=== PATIENT | female | born 1995 | race Caucasian/White ===

== ENCOUNTER 2021-11-05 07:25 | Inpatient (IN) | payer SELFPAY, OTHER ==
[2021-11-05] VITALS (24 sets, daily range): BP systolic 106–136; BP diastolic 56–91; PULSE 65–96; TEMP 36.3–37.1; O2SAT 90–99; BMI 25.9
[2021-11-05 07:12] LABS: ROM Internal Control Test YES-OK TO RESULT pt. (Internal QC)
[2021-11-05 07:13] LABS: ROM Patient Test POSITIVE (Negative)
[2021-11-05 07:41] LABS: Bedside Glucose 79 mg/dL (74-106)
[2021-11-05] MEDS: Lactated Ringers 1,000 ML 50 ML IV (08:05)
[2021-11-05 08:29] LABS: Absolute Lymphocyte Count 1.39 X10^3/uL (0.83-4.51); Absolute Neutrophil Count 6.9 X10^3/uL (2.0-7.7); Basophil# 0.02 X10^3/uL; Basophil% 0.2 % (0-1); Eosinophil# 0.02 X10^3/uL; Eosinophils% 0.2 % (0-5); Hematocrit 42.2 % (37-47); Hemoglobin 14.3 g/dL (12.0-15.0); Lymphocyte # 1.39 X10^3/ul (0.83-4.51); Lymphocyte % 15.6 % (19-41); Mean Corp Hgb Conc 33.9 g/dL (32-36); Mean Corpuscular Hgb 30.4 pg (27.0-32.0); Mean Corpuscular Volume 89.8 fL (81-99); Mean Platelet Vol. 10.8 fl (6.2-12.0); Monocyte# 0.45 X10^3/uL; NRBC Flagged by Analyzer 0 % (0-5); Neutrophil # 6.94 X10^3/uL (2.7-7.7); Neutrophil % 77.9 % (47-70); Platelet Count 123 K/mm3 (150-450); RBC Distribution Width CV 13.1 % (11.6-14.6); RBC Distribution Width SD 43.1 fl (35.1-43.9); White Blood Count 8.9 K/mm3 (4.4-11.0)
[2021-11-05 09:39] LABS: HIV - WCH Non-Reactive (Nonreactive); Hepatitis C Antibody Non-Reactive (Nonreactive)
[2021-11-05 09:59] LABS: Group B Strep DNA By PCR Negative (Negative); Internal Control PASS; Probe Check PASS; Specimen Processing Control PASS
[2021-11-05] MEDS: Oxytocin 30 units/NS 500 ml 30 UNITS/500 ML IV.SOLN IV (10:13)
[2021-11-05] MEDS: Betamethasone/Betamethasone 30 MG/5 ML Vial 12 MG IM (12:02)
[2021-11-05] MEDS: Amnioinfusion- 0.9% NS 1,000 ML IV.SOLN. 1000 ML INTRA-UTER (16:13)
--- NOTE | 2021-11-05 16:35 | PCM.HP.OB ---
HPI - General General Date of Admission: 11/05/21 HPI Narrative ALEN PÉREZ, is a 26 F who presents with clear PPROM at 4 am this morning. she has been receiving care by the vice president of software development Jyoti at the [facility]. she denies any bleeding or regular ctx, admits good fm. she denies any recent infections. Maternal Data Information BRAYDON Calculator Estimated Delivery Date Method Current WG Current Estimate 12/05/21 LMP (Certain) 35w 5d PFSH PFSH Medical History (Updated 11/05/21 @ 16:[address] Cara Moreland MD) Burn Home Medications [id number] [] 1 tab PO DAILY 11/05/21 [History Last Taken 11/04/21 20:00] Allergy/AdvReac Type Severity Reaction Status Date / Time No Known Allergies Allergy Verified 11/05/21 07:29 Family History (Updated 11/05/21 @ 08:01 by Callie Temple) Sister Cerebral palsy Surgical History (Updated 11/05/21 @ 16:[address] Cara Moreland MD) H/O skin graft Social History Smoking Status: Never smoker History 1 Elective abortions Hx Para 0 Spontaneous abortions Hx # Term Pregnancies Ectopic pregnancies Hx # Pregnancies Multiple births # of living children NST FHR Rate Baby A Baseline: 140 Variability:: Moderate Accelerations:: 15 x 15 Decelerations:: None NST Reactive:: Yes FHR Category:: Category I Uterine Activity:: irregular ROS Constitutional Constitutional: Reports systems reviewed and no addt'l complaints, except as documented ENT HEENT: Reports systems reviewed and no addt'l complaints, except as documented Cardiovascular Cardiovascular: Reports systems reviewed and no addt'l complaints, except as documented Respiratory/Chest Respiratory/Chest: Reports systems reviewed and no addt'l complaints, except as documented Gastrointestinal Gastrointestinal: Reports systems reviewed and no addt'l complaints, except as documented and nausea; Denies abdominal pain Genitourinary Genitourinary: Reports systems reviewed and no addt'l complaints, except as documented, contractions Details: present and frequency (regular ) and movement Details: present Musculoskeletal Musculoskeletal: Reports systems reviewed and no addt'l complaints, except as documented Integumentary Integumentary: Reports as per HPI Neurologic Neurologic: Reports systems reviewed and no addt'l complaints, except as documented Endocrine Endocrinology: Reports systems reviewed and no addt'l complaints, except as documented Vital Signs Vital Signs Vital Signs: 11/05/21 06:51 11/05/21 07:13 11/05/21 09:05 Temperature 97.9 F 98.6 F Temperature Source Temporal Temporal Pulse Rate 85 88 95 Blood Pressure 128/76 H 124/73 H 116/70 BP Systolic 128 124 116 BP Diastolic 76 73 70 Pulse Ox 98 98 11/05/21 10:15 11/05/21 11:11 11/05/21 12:08 Temperature 98.7 F 98.3 F Temperature Source Temporal Temporal Pulse Rate 87 79 85 Blood Pressure 123/60 H 112/56 L 106/64 BP Systolic 123 112 106 BP Diastolic 60 56 64 Pulse Ox 96 96 97 11/05/21 12:32 11/05/21 13:35 11/05/21 14:31 Temperature 98.2 F 97.5 F L 98.4 F Temperature Source Temporal Temporal Temporal Pulse Rate 90 88 91 Blood Pressure 118/68 114/75 120/70 BP Systolic 118 114 120 BP Diastolic 68 75 70 Pulse Ox 96 97 99 11/05/21 15:21 11/05/21 15:22 Temperature 97.9 F Temperature Source Temporal Pulse Rate 78 Blood Pressure 115/74 BP Systolic 115 BP Diastolic 74 Pulse Ox 97 Weight Weight: 156 lb Body Mass Index (BMI) 25.9 Physical Exam Const alert, oriented x3 and healthy appearing Constitutional Narrative: uncomfortable with contractions HEENT normocephalic and moist oral mucous membranes Head and Scalp: atraumatic Neck full ROM, no lymphadenopathy, supple and thyroid normal General: trachea midline Thyroid: thyroid normal Lymph Lymphatic: no lymphadenopathy noted Chest inspection of chest normal Resp normal respiratory effort Cardio regular rate GI normal to inspection, nondistended, normoactive bowel sounds, soft to palpation and non-tender Inspection: gravid external exam normal Bimanual Exam - Vag & Uterus: uterus non-tender Manual OB Exam: estimated gestational size appropriate, presentation cephalic, dilated, effaced and station Extremity normal to inspection General Extremity: Negative for edema Skin no rashes or lesions noted Neuro deep tendon reflexes 2+ bilaterally Motor Exam: strength 5/5 throughout and clonus absent Psych mental status grossly normal Labs Labs Labs: Blood Type A POSITIVE Antibody Screen NEGATIVE Hct 42.2 % (37-47) Hgb 14.3 g/dL (12.0-15.0) HIV 1&2 Antibody Non-Reactive (Nonreactive) Group B Strep DNA Negative (Negative) Assessment & Plan (1) premature rupture of membranes (PPROM) with unknown onset of labor: COMMENT: start pitocin per protocol, ampicillin for GBS prophylaxis and rapid sent, celestone x 1 given. monitor for signs of chorioamnionitis. prepare for . discussed Epidural/Nitrous Oxide/IV pain meds PRN. (2) : PLAN: see problem list comments for plan management
--- NOTE | 2021-11-05 17:50 | PN.OBGYN_ITS ---
Subjective Subjective Reports contractions intensify. Objective Data Objective Data Vital Signs: Vital Signs Temp Pulse BP Pulse Ox 97.8 F 65 114/65 90 11/05/21 16:57 11/05/21 16:58 11/05/21 16:58 11/05/21 16:58 Weight: 70.76 kg Body Mass Index (BMI) 25.9 Intake & Output: Intake and Output for Last 24 Hours 11/03/21 11/04/21 11/05/21 23:59 23:59 23:59 Intake Total 1630.13 / 1630.13 Output Total 2250 / 2250 Balance -619.87 / -619.87 Lab / Micro Data Result Diagrams: 11/05/21 08:00 Labs: Laboratory Results - last 24 hr 11/05/21 06:58: Vag Amniotic Fld Detect POSITIVE H 11/05/21 07:29: POC Glucose 79 11/05/21 08:00: WBC 8.9, RBC 4.70, Hgb 14.3, Hct 42.2, MCV 89.8, MCH 30.4, MCHC 33.9, RDW Std Deviation 43.1, RDW Coeff of Anatoly 13.1, Plt Count 123 L, MPV 10.8, Immature Gran % (Auto) 1.100 H, Neut % (Auto) 77.9 H, Lymph % (Auto) 15.6 L, Bollinger % (Auto) 5.0, Eos % (Auto) 0.2, Baso % (Auto) 0.2, Absolute Neuts (auto) 6.9, Absolute Lymphs (auto) 1.39, Nucleated RBC % 0 11/05/21 08:00: Blood Type A POSITIVE, Antibody Screen NEGATIVE 11/05/21 08:00: Group B Strep DNA Negative, Specimen Comment Not Reportable 11/05/21 08:00: Hepatitis C Antibody Non-Reactive, HIV 1&2 Antibody Non-Reactive Micro: Microbiology 11/05/21 08:22 Nasal Secretion SARS-CoV-2 Antigen (Rapid) - Final Physical Exam Const alert and oriented x3 Constitutional Narrative: breathing through contractions. GI GI Narrative: gravid, nontender Narrative: 6.5/80/0, cephalic NST FHR Rate Baby A Baseline: 115 Variability:: Moderate Accelerations:: 15 x 15 Decelerations:: None NST Reactive:: Yes FHR Category:: Category I Uterine Activity:: 11/26 Assessment & Plan (1) premature rupture of membranes (PPROM) with unknown onset of labor: PLAN: Amnioinfusion completed and pitocin discontinued due to variable decels with improvement. Ampicillin for GBS ppx, rapid test neg Pain management prn (2) : QUALIFIERS: Weeks of gestation: 35 weeks Qualified Code(s): Z3A.35 - 35 weeks gestation of
--- NOTE | 2021-11-05 19:42 | PLAC_PTH ---
PATIENT: ALEN PÉREZ LOC: [facility] U#:[id number] AGE/SX: 26/F ROOM: [facility]003 RE11/05/[address]: Dr. Susan Curry MD : 1995 BED: 1 DIS: 11/07/2021 SPEC #: [id number] RECD: 11/05/21 20:49 STATUS: PRIETO REJesus #: [id number] ANA: 11/05/21 19:[address]: Susan Phillips DEPT: SURGICAL PATHOLOGY RECD BY: Cheli Griffith ENTERED: 11/06/21 09:56 SP TYPE: PLACENTA OTHR DR: Dr. Willem Aguilar, DO Tissues: Placenta, NOS Procedures: Surgery Specimen Level V HEADER OPERATION: Vaginal delivery PRE-OP DIAGNOSIS: PPROM at 35 weeks? gestation TISSUE SUBMITTED: Placenta MICROSCOPIC DIAGNOSIS Tate placenta (346 gm): Umbilical cord ? trivascular with no evidence of inflammation. Placental membranes ? minimal chronic decidual inflammation. Placental disc ? Carlie-Tin change and mildly increased intraparenchymal fibrin plaques. AM:concepción 11/08/2021 MICROSCOPIC DESCRIPTION Slides are reviewed. GROSS DESCRIPTION SPECIMEN: PLACENTA / CLINICAL INFORMATION: A. Weight: 2.42 kg B. Gestational Age: 35 weeks C. Sex: Female PLACENTAL WEIGHT (POST FIXATION): 346 gm PLACENTAL DIMENSIONS: 15.5 x 13 x 2 cm PLACENTAL SHAPE: Usual ovoid PLACENTAL WEIGHT FOR GESTATIONAL AGE: Within 10-99th percentile MEMBRANES - Present A. Insertion: Marginal B. Site of rupture from edge: At edge of placental disc C. Color of membrane: Christina-scott D. Abnormalities: None UMBILICAL CORD - Present A. Color: Christina-scott B. Insertion: Eccentric C. Length: 45 cm D. Diameter: 1.2 cm E. Number of vessels: Three F. Abnormalities: None PLACENTAL DISC - Present A. Color of surface: Christina-scott B. surface abnormalities: None C. Maternal cotyledons: Intact with minimal tears D. Attached retro placental clot: No clot E. Cut surface: Dark red and spongy F. Lesions: None G. Separate clot: Absent SECTIONS SUBMITTED: 1. Umbilical cord ( end notched) 2. Umbilical cord, placental end 3. Membrane roll 4. Placental disc, and maternal surfaces 5. Placental disc, and maternal surfaces 6. Placental disc, and maternal surfaces AM:concepción 11/07/2021 TC:5 CPT: 60172
[2021-11-05] MEDS: Oxytocin 30 units/NS 500 ml 30 UNITS/500 ML IV.SOLN 334 UNITS IV (19:48)
--- NOTE | 2021-11-05 20:20 | EX.PCM.OBRPT ---
Assessment & Plan (1) premature rupture of membranes (PPROM) with unknown onset of labor: (2) (spontaneous vaginal delivery): Maternal Data Information BRAYDON Calculator Estimated Delivery Date Method Current WG Current Estimate 12/05/21 LMP (Certain) 35w 5d Vaginal Delivery Maternal Presentation Maternal Presentation: Spontaneous Rupture of Membranes (PPROM) Type of Induction: Pitocin Operative Information Date of Procedure: 11/05/21 Pre-Operative Diagnosis: 1. 35 5 /7 weeks gestation 2. PPROM Post-Operative Diagnosis: 1. 35 5 /7 weeks gestation 2. PPROM Surgery / Procedure Performed: Spontaneous Vaginal Delivery Type of Anesthesia: None Estimated Blood Loss: 350 ml Time of Delivery: 19:42 Findings Description of Procedure: Patient was FD/+3 station with Cat II FHR, moderate variability maintained. Pushed to deliver a female in OA through nuchal cord with nuchal cord subsequently reduced. She was placed on the maternal abdomen, infant mouth and nares were bulb suctioned and she was further attended by nursery personnel. The cord was doubly clamped and cut. Cord gases were obtained. The placenta delivered spontaneously with small detached portion retrieved manually. A second degree perineal laceration was repaired with 3-0 Vicryl Rapide. Fundus was firm at the umbilicus and there was excellent hemostasis. Sponge and needle counts were correct x 2. Amniotic Fluid Description: Clear Placental Delivery Description: Spontaneous Specimen(s) Removed: placenta Cord Vessel Description: 3 Vessels Cord Entanglement: Around neck x 1, loose Nuchal Cord Compression: Without compression Cord Gases: ABG and VBG A Gender: Female (1 minute): 8 (5 minute): 9 Delayed Cord Clamping: Yes Post Vaginal Delivery Medications Given After Delivery: IV Pitocin Episiotomy Description: None Laceration: Midline and 2nd degree Complication Complications: None
[2021-11-05 20:59] LABS: Pathology Specimen OB SEE PATHOLOGY REPORT
[2021-11-06 01:00] VITALS: BP 114/64; PULSE 70; RESP 16; TEMP 36.7
[2021-11-06 04:19] VITALS: BP 108/68; PULSE 68; RESP 16; TEMP 36.9
[2021-11-06 07:35] VITALS: BP 120/67; PULSE 75; RESP 18; TEMP 36.7; O2SAT 96
--- NOTE | 2021-11-06 09:25 | PCM.PN.OB ---
Subjective Subjective Patient without complaints. Minimal vaginal bleeding reported. Baby needs to stay for another 1 or 2 days. Objective Data Objective Data Vital Signs: Vital Signs Temp Pulse Resp BP Pulse Ox 98.1 F 75 18 120/67 96 11/06/21 07:35 11/06/21 07:35 11/06/21 07:35 11/06/21 07:35 11/06/21 07:35 Oxygen Delivery Method Room Air Weight: 156 lb Body Mass Index (BMI) 25.9 Intake & Output: Intake and Output for Last 24 Hours 11/04/21 11/05/21 11/06/21 23:59 23:59 23:59 Intake Total 2290.96 / 2290.96 Output Total 2750 / 2750 1000 / 1000 Balance -459.04 / -459.04 -1000 / -1000 Lab / Micro Data Result Diagrams: 11/05/21 08:00 Labs: Laboratory Results - last 24 hr 11/05/21 08:00: Blood Type A POSITIVE, Antibody Screen NEGATIVE 11/05/21 08:00: Group B Strep DNA Negative, Specimen Comment Not Reportable 11/05/21 08:00: Hepatitis C Antibody Non-Reactive, HIV 1&2 Antibody Non-Reactive Micro: Microbiology 11/05/21 08:22 Nasal Secretion SARS-CoV-2 Antigen (Rapid) - Final Assessment & Plan (1) (spontaneous vaginal delivery): PLAN: Doing well day #1 status post routine spontaneous vaginal delivery at 35+ weeks gestation. Continuing present care.
[2021-11-06 11:00] VITALS: BP 113/57; PULSE 94; RESP 18; TEMP 36.4; O2SAT 100
[2021-11-06] MEDS: Prenatal Vits Tablet 1 TABLET PO (11:07)
--- NOTE | 2021-11-06 14:54 | NURSING ---
Pt refuses MMR.
[2021-11-06 16:46] VITALS: BP 110/67; PULSE 82; RESP 16; TEMP 36.7; O2SAT 95
[2021-11-06 21:01] VITALS: BP 115/65; PULSE 76; RESP 16; TEMP 36.6
[2021-11-07 01:57] VITALS: BP 109/66; PULSE 66; RESP 16; TEMP 36.6
--- NOTE | 2021-11-07 09:27 | PCM.PN.OB ---
Subjective Subjective Patient without complaints. Breast-feeding. Baby may be able to be transferred to [facility] for continued feeding assistance. Objective Data Objective Data Vital Signs: Vital Signs Temp Pulse Resp BP Pulse Ox 97.9 F 66 16 109/66 95 11/07/21 01:57 11/07/21 01:57 11/07/21 01:57 11/07/21 01:57 11/06/21 16:46 Oxygen Delivery Method Room Air Weight: 156 lb Body Mass Index (BMI) 25.9 Intake & Output: Intake and Output for Last 24 Hours 11/05/21 11/06/21 11/07/21 23:59 23:59 23:59 Intake Total 2290.96 / 2290.96 Output Total 2750 / 2750 1000 / 1000 Balance -459.04 / -459.04 -1000 / -1000 Lab / Micro Data Result Diagrams: 11/05/21 08:00 Micro: Microbiology 11/05/21 08:22 Nasal Secretion SARS-CoV-2 Antigen (Rapid) - Final Assessment & Plan (1) (spontaneous vaginal delivery): PLAN: Doing well day #2 status post routine spontaneous vaginal delivery at 35+ weeks gestation. Will discharge to home or hotel. Routine home-going instructions given. Patient to follow-up with our practice or her chili powder mixer in approximately 6 weeks.
--- NOTE | 2021-11-07 09:28 | PCM.DC ---
Discharge Instructions Diet Discharge Diet: No restrictions Activity Discharge Activity: May Drive (In 1 to 2 days if not taking narcotic pain medication), May Shower and May Take a Tub Bath May resume sexual activity in: 4-6 weeks Additional Activity Instructions:: Nothing in the vagina for 4-6 weeks. You may return to work/school in 6 weeks. Dressing / Incision Call your doctor if you observe: Fever of 101 or Higher, Inability to urinate, Inability to have a bowel movement and Using more than 1 pad per hour Follow Up Care Please Follow Up With: Susan Phillips MD When: Call [phone] to make an appointment with your doctor in 6 weeks. Test Results: Test results from this visit will be discussed in further detail at your follow-up appointment, if applicable. Discharge Plan Admission Admit Date/Time: 11/05/21 07:25 Primary Reason for Your Visit: Vaginal Delivery Attending Provider: Susan Phillips Primary Care Provider: Willem Aguilar Discharge Orders/Prescriptions Prescriptions: No Action 1 mg Tablet 1 tab PO DAILY RF: 0 Referrals / Follow Up: Willem Aguilar DO [Primary Care Provider] - Disposition Disposition (needs filled in before D/C Order can be placed): Home, Self Care
[2021-11-07 09:34] VITALS: BP 109/60; PULSE 66; RESP 16; TEMP 36.4; O2SAT 97
--- NOTE | 2021-11-07 12:22 | NURSING ---
this RN has reviewed and agrees with charting completed by Franc Lou, orienting RN
== END 2021-11-07 10:30 | disposition home or self-care (01) | DRG 807 ==
LOC: WPOUT 07:28 → WP 07:28
PROVIDERS: Obstetrics & Gynecology; Admitting Provider Obstetrics & Gynecology; PCP Family Medicine; Referring Provider Obstetrics & Gynecology; Visit Provider Obstetrics & Gynecology
DX: O42.913 Preterm premature rupture of membranes, unspecified as to length of time between rupture and onset of labor, third trimester (principal); Z37.0 Single live birth; O69.81X0 Labor and delivery complicated by cord around neck, without compression, not applicable or unspecified; O70.1 Second degree perineal laceration during delivery; Z3A.35 35 weeks gestation of pregnancy; O76 Abnormality in fetal heart rate and rhythm complicating labor and delivery
CPT/HCPCS: 59025; 59050; 82962; 84112; 85025; 86703; 86803; 86850; 86900; 86901; 87081; 87426; 87653; 88307; 99218; J7030; J7120; G0378; J0290; J0702